=== PATIENT | male | born 1970 | race Caucasian/White ===

== ENCOUNTER 2016-08-08 10:44 | Emergency (ER) | payer SELFPAY ==
--- NOTE | 2016-08-08 11:05 | Emergency Department Record ---
History of Present Illness - General Chief complaint: Pain Stated complaint: LT HAND PAIN Time Seen by Provider: 08/08/16 11:05 Source: Patient Mode of Arrival: Ambulatory Limitations: No limitations - History of Present Illness Initial comments: The patient is here due to L hand pain for about 10 days. The pain is mainly in the [place] area. He denies any trauma or injury but does work with his hands at work. Complaint: Extremity pain Onset/Timin -: Days(s) Location: Left, Hand History of Same: Yes Radiation: None Severity scale (1-10): 3 Quality: Aching Consistency: Intermittent Improves with: Rest, Other Worsens with: Exertion Associated Symptoms: Denies other symptoms - Related Data Previous Rx's Medication Instructions Recorded Cephalexin [Keflex] 500 mg PO TID #30 cap 06/28/16 Naproxen [Naprosyn] 500 mg PO BID #14 tablet. 08/08/16 Allergies Allergy/AdvReac Type Severity Reaction Status Date / Time No Known Drug Allergies Allergy Verified 08/08/16 10:56 Travel Screening - Travel/Exposure Within Last 30 Days Have you traveled within the last 30 days?: No - Travel/Exposure Within Last Year Have you traveled outside the [place] in the last year?: No - Additonal Travel Details Have you been exposed to anyone with a communicable illness?: No - Travel Symptoms Symptom Screening: None Review of Systems Constitutional: Denies: Chills, Fever Eyes: Denies: Eye discharge ENT: Denies: Congestion Respiratory: Denies: Cough, Dyspnea Past Medical History - SOCIAL HISTORY Smoking Status: Light tobacco smoker (<10/day) Alcohol Use: Occassional Alcohol Use Comment: socially Drug Use: Occassional Drug Use Detail:: Marijuana - RESPIRATORY Hx Respiratory Disorders: Yes Hx Bronchitis: Yes - CARDIOVASCULAR Hx Cardio Disorders: No - NEURO Hx Neuro Disorders: No - GI Hx GI Disorders: No - Hx Genitourinary Disorders: No - ENDOCRINE Hx Endocrine Disorders: No - MUSCULOSKELETAL Hx Musculoskeletal Disorders: No - PSYCH Hx Psych Problems: No - HEMATOLOGY/ONCOLOGY Hx Hematology/Oncology Disorders: No Family Medical History Any Significant Family History?: No Hx Heart Disease: Grandparents Physical Exam - General General Appearance: Alert, Oriented x3, Cooperative, No acute distress - Head Head exam: Atraumatic, Normocephalic, Normal inspection - Eye Eye exam: Normal appearance, PERRL - Extremities Extremities exam: Normal inspection (There is no swelling or bruising or erythema.), Full ROM (There is full ROM of the thumb and fingers with no pain.) , Normal capillary refill, Tenderness (There is mild tenderness over the 1st MC bone. ). negative: Joint swelling Course Vital Signs 08/08/16 10:57 Temperature 97.4 F L Pulse Rate 66 Respiratory 20 Rate Blood Pressure 117/69 Pulse Ox 98 - Reevaluation(s) Reevaluation #1: I did discuss the issues with the patient and the need for F/U. 08/08/16 12:03 Medical Decision Making - Data Complexity MDM Data: X-Ray Ordered and/or Reviewed - Radiology Data Radiology results: Report reviewed (L hand: Neg.) Disposition Disposition: Discharge Clinical Impression: Chronic pain of left hand Disposition: Home, Self-Care Condition: (1) Good Instructions: Arthralgia (ED) Additional Instructions: Please take the Naprosyn for pain and see your family doctor if not better in 1- 2 weeks. Prescriptions: Naproxen [Naprosyn] 500 mg PO BID #14 tablet.dr Forms: Patient Portal Access Time of Disposition: 12:03
--- NOTE | 2016-08-11 12:35 | RADIOLOGY REPORT ---
EXAM: LEFT HAND HISTORY: NO KNOWN INJURY, LEFT HAND PAIN FOR TWO WEEKS NEAR BASE OF THUMB. TECHNIQUE: Three views of the left hand were obtained. Comparison: None. FINDINGS: Minor degenerative arthritis is seen at some of the IP joints of the left hand. Minor degenerative arthritis at the first CMC articulation along the radial aspect of the wrist as well. Elsewhere the left hand appears negative. IMPRESSION: MINOR DEGENERATIVE ARTHRITIS IN THE LEFT HAND AND WRIST. JOB NUMBER: [id number] [facility]
== END 2016-08-08 12:07 | disposition home or self-care (01) ==
LOC: ER 10:44
DX: G89.29 Other chronic pain (principal); M79.642 Pain in left hand
CPT/HCPCS: 99283

== ENCOUNTER 2018-08-17 08:43 | Emergency (ER) | payer SELFPAY ==
--- NOTE | 2018-08-17 09:09 | Emergency Department Record ---
History of Present Illness - General Chief complaint: Extremity Problem Stated complaint: right arm pain Time Seen by Provider: 08/17/18 08:54 Source: Patient Mode of Arrival: Ambulatory Limitations: No limitations - History of Present Illness Initial comments: The patient is here due to R arm pain for at least 2 weeks. The pain starts over the lateral R elbow and sometimes travels to the R wrist. He does have intermittent numbness to his fingers at times but presently it is gone. The patient denies any injury, trauma, neck pain, or arm weakness. He does work at [employer] and does lift a lot chronically and the pain is worse at work. MD Complaint: Extremity pain Onset/Timin -: Days(s) Location: Right, Arm History of Same: Yes Radiation: Distal Severity scale (1-10): 8 Quality: Aching, Dull Consistency: Constant, Intermittent Improves with: Rest Worsens with: Exertion - Related Data Previous Rx's Medication Instructions Recorded Naproxen [Naprosyn] 500 mg PO BID #28 tablet. 08/17/18 Allergies Allergy/AdvReac Type Severity Reaction Status Date / Time No Known Drug Allergies Allergy Verified 08/17/18 08:54 Travel Screening - Travel/Exposure Within Last 30 Days Have you traveled within the last 30 days?: No - Travel/Exposure Within Last Year Have you traveled outside the [place] in the last year?: No - Additonal Travel Details Have you been exposed to anyone with a communicable illness?: No - Travel Symptoms Symptom Screening: None Review of Systems Constitutional: Denies: Chills, Fever Eyes: Denies: Eye discharge ENT: Denies: Congestion Respiratory: Denies: Cough, Dyspnea Past Medical History - SOCIAL HISTORY Smoking Status: Light tobacco smoker (<10/day) Alcohol Use: None, Rare Drug Use: None, Rare Drug Use Detail:: Marijuana - RESPIRATORY Hx Respiratory Disorders: Yes Hx Bronchitis: Yes - CARDIOVASCULAR Hx Cardio Disorders: No - NEURO Hx Neuro Disorders: No - GI Hx GI Disorders: No - Hx Genitourinary Disorders: No - ENDOCRINE Hx Endocrine Disorders: No - MUSCULOSKELETAL Hx Musculoskeletal Disorders: No - PSYCH Hx Psych Problems: No - HEMATOLOGY/ONCOLOGY Hx Hematology/Oncology Disorders: No Family Medical History Any Significant Family History?: Yes Hx Heart Disease: Grandparents Physical Exam - General General Appearance: Alert, Oriented x3, Cooperative, No acute distress - Head Head exam: Atraumatic, Normocephalic, Normal inspection - Eye Eye exam: Normal appearance, PERRL - Neck Neck exam: Normal inspection, Full ROM. negative: Tenderness (There is no Cspine tenderness.) - Respiratory Respiratory exam: Normal lung sounds bilaterally. negative: Respiratory distress - Cardiovascular Cardiovascular Exam: Regular rate, Normal rhythm, Normal heart sounds - Extremities Extremities exam: Normal inspection, Full ROM, Normal capillary refill, Tenderness (There is tenderness to the proximal R lateral forearm at the elbow which does reproduce the patient's pain. ). negative: Joint swelling - Neurological Neurological exam: Alert, Normal gait, Oriented X3, Reflexes normal, Other (The R arm is NVI.). negative: Abnormal gait, Motor sensory deficit Course Vital Signs 08/17/18 08:49 Temperature 97.5 F L Pulse Rate 62 Respiratory 18 Rate Blood Pressure 121/82 Pulse Ox 97 - Reevaluation(s) Reevaluation #1: I did explain to the patient the need to take naprosyn for pain and follow up with a family doctor in 1-2 weeks for recheck. 08/17/18 09:09 Disposition Disposition: Discharge Clinical Impression: Arm pain Qualifiers: Laterality: right Qualified Code(s): M79.601 - Pain in right arm Disposition: Home, Self-Care Condition: (2) Stable Instructions: Tendinitis (ED) Additional Instructions: Please rest the R arm when possible and use naprosyn for pain. Please see your family doctor for recheck in 1-2 weeks. Return to the ER for any worsening symptoms. Prescriptions: Naproxen [Naprosyn] 500 mg PO BID #28 tablet.dr Forms: Patient Portal Access Time of Disposition: 09:10 Quality - Quality Measures Quality Measures: N/A - Blood Pressure Screening View Details: Yes Does Patient Have Any of the Following: No Blood Pressure Classification: Pre-Hypertensive BP Reading Systolic Measurement: 121 Diastolic Measurement: 82 Screening for High Blood Pressure: < Pre-Hypertensive BP, F/U Documented > [ [id number]] Pre-Hypertensive Follow-up Interventions: Referral to alternative/primary care provider.
== END 2018-08-17 09:24 | disposition home or self-care (01) ==
LOC: ER 08:43
DX: M79.631 Pain in right forearm (principal); F17.210 Nicotine dependence, cigarettes, uncomplicated
CPT/HCPCS: 99282